=== PATIENT | male | born 1950 | race Caucasian/White ===

== ENCOUNTER 2018-08-16 06:05 | Inpatient (IN) | payer MEDICARE, OTHER ==
[~2018-08-16] VITALS: Ht 182.9 cm; Wt 177.3 kg
[2018-08-16 07:15] LABS: BASOPHILS # (AUTO) 0.1 X10'3 (0-0.2); EOSINOPHILS # (AUTO) 0.2 X10'3 (0-0.9); EOSINOPHILS % (AUTO) 2.7 % (0-6); HEMATOCRIT 47.8 % (42.0-52.0); HEMOGLOBIN 14.5 g/dl (14.0-17.9); LYMPHOCYTES # (AUTO) 0.5 X10'3 (1.1-4.8); LYMPHOCYTES % (AUTO) 6.5 % (21-51); MEAN CORPUSCULAR HEMOGLOBIN 25.1 PG (27.0-31.0); MEAN CORPUSCULAR HGB CONC 30.4 g/dL (33.0-36.5); MEAN CORPUSCULAR VOLUME 82.5 FL (78-98); MEAN PLATELET VOLUME 7.9 FL (7.4-10.4); MONOCYTES # (AUTO) 0.9 X10'3 (0-0.9); MONOCYTES % (AUTO) 10.3 % (2-12); NEUTROPHILS # (AUTO) 6.7 X10'3 (1.8-7.7); NEUTROPHILS % (AUTO) 79.5 % (42-75); PLATELET COUNT 243 X10'3 (140-440); RED BLOOD COUNT 5.79 X10'6 (4.70-6.10); RED CELL DISTRIBUTION WIDTH 20.2 % (11.5-14.5); WHITE BLOOD COUNT 8.4 X10'3 (4.5-11.0)
[2018-08-16 07:27] LABS: INR 1.3 INR; PARTIAL THROMBOPLASTIN TIME 29 SECONDS (22-32)
[2018-08-16 07:29] LABS: ALANINE AMINOTRANSFERASE 24 U/L (12-78); ALBUMIN/GLOBULIN RATIO 0.7 (1.1-1.5); ALKALINE PHOSPHATASE 86 IU/L (46-116); ANION GAP 6 (8-16); ASPARTATE AMINO TRANSFERASE 22 U/L (10-37); BILIRUBIN,TOTAL 2.7 MG/DL (0.1-1.0); BLOOD UREA NITROGEN 39 MG/DL (7-18); BUN/CREATININE RATIO 22.8 (5.4-32.0); CALCIUM 8.7 MG/DL (8.5-10.1); CHLORIDE 102 MMOL/L (99-107); CREATININE 1.71 MG/DL (0.60-1.10); GLUCOSE 108 MG/DL (70-104); POTASSIUM 4.2 MMOL/L (3.5-5.1); SODIUM 140 MMOL/L (135-145); TOTAL CARBON DIOXIDE 31.9 MMOL/L (24-32); TOTAL PROTEIN 7.5 G/DL (6.4-8.2); eGFR 40 ML/MIN
[2018-08-16] MEDS ORDERED: iohexol 350MG/ML 100ml bottle IV ONE (08:35)
[2018-08-16 10:52] LABS: PLATELET ESTIMATE NORMAL
[2018-08-16 10:53] LABS: ANISOCYTOSIS 3+; HYPOCHROMASIA 1+; MICROCYTOSIS 1+; POIKILOCYTOSIS 1+; POLYCHROMASIA 1+; SCHISTOCYTES FEW; STOMATOCYTES FEW; TARGET CELLS FEW
[2018-08-16] MEDS ORDERED: magnesium hydroxide 30ml (MOM) UD suspension PO PRN (11:15)
[2018-08-16] MEDS ORDERED: ondansetron/PF 4mg/2ml inj IV PRN (11:15)
[2018-08-16] MEDS ORDERED: acetaminophen 325mg tablet PO PRN (11:15)
[2018-08-16] MEDS ORDERED: mag hydrox/Alum hydrox/simeth 30ml oral suspension PO PRN (11:15)
[2018-08-16] MEDS ORDERED: FURO40TA4 PO (12:28)
[2018-08-16] MEDS ORDERED: LOSA100T57 PO (12:30)
[2018-08-16] MEDS ORDERED: AMLO10TA13 PO (12:30)
[2018-08-16] MEDS ORDERED: METF-437 PO (12:30)
[2018-08-16] MEDS ORDERED: METO25TA6 PO (12:30)
[2018-08-16] MEDS ORDERED: ASPI-974 PO (12:31)
--- NOTE | 2018-08-16 12:34 | NUR ---
Patient in room . I have received report from Sabine RN and had the opportunity to ask questions and assume patient care.
[2018-08-16 12:46] LABS: CREATINE KINASE 105 U/L (39-308)
[2018-08-16] MEDS ORDERED: MULT-933 PO (12:53)
[2018-08-16 13:00] VITALS: BP 127/75
--- NOTE | 2018-08-16 13:00 | NUR ---
patient arrived to pcu.
[2018-08-16 15:00] VITALS: BP 131/77
[2018-08-16] MEDS ORDERED: heparin 10,000 units/1 ML INJ IV ONE (16:15)
[2018-08-16] MEDS ORDERED: albuterol 2.5 MG/3 ML nebule NEB PRN (16:25)
[2018-08-16] MEDS: heparin 25,000 UNIT/250ml bag 250 ML IV SCH (16:54)
[2018-08-16 17:09] LABS: INR 1.3 INR; PARTIAL THROMBOPLASTIN TIME 29 SECONDS (22-32)
[2018-08-16 17:57] LABS: HEMATOCRIT 47.8 % (42.0-52.0); HEMOGLOBIN 15.4 g/dl (14.0-17.9); MEAN CORPUSCULAR HEMOGLOBIN 27.2 PG (27.0-31.0); MEAN CORPUSCULAR HGB CONC 32.3 g/dL (33.0-36.5); MEAN CORPUSCULAR VOLUME 84.2 FL (78-98); MEAN PLATELET VOLUME 8.2 FL (7.4-10.4); PLATELET COUNT 237 X10'3 (140-440); RED BLOOD COUNT 5.67 X10'6 (4.70-6.10); RED CELL DISTRIBUTION WIDTH 20.2 % (11.5-14.5); WHITE BLOOD COUNT 8.7 X10'3 (4.5-11.0)
[2018-08-16 18:00] VITALS: BP 126/75
--- NOTE | 2018-08-16 18:25 | NUR ---
Problems reprioritized. Patient report given, questions answered & plan of care reviewed with Lizy LOBATO.
[2018-08-16 19:20] LABS: PLATELET ESTIMATE NORMAL; TOTAL CELLS COUNTED 100
[2018-08-16 19:21] LABS: ANISOCYTOSIS 3+
[2018-08-16 19:22] LABS: HYPOCHROMASIA 1+; POLYCHROMASIA 1+; SPHEROCYTES FEW
[2018-08-16 19:23] LABS: POIKILOCYTOSIS FEW; STOMATOCYTES 1+; TARGET CELLS FEW
[2018-08-16] MEDS: furosemide 40mg/4ml inj IV SCH (20:08)
[2018-08-16] MEDS: guaiFENesin ER 600mg tablet PO SCH (20:09)
[2018-08-16] MEDS: metoprolol tartrate 12.5mg (1/2 tablet) PO SCH (20:09)
[2018-08-16 22:00] VITALS: BP 109/77
[2018-08-17] MEDS: heparin 10,000 units/1 ML INJ IV PRN ×2 (00:01→06:56)
[2018-08-17] MEDS: heparin 25,000 UNIT/250ml bag 250 ML IV SCH ×2 (00:05→06:48)
[2018-08-17 02:00] VITALS: BP 109/71
[2018-08-17 05:59] LABS: BASOPHILS # (AUTO) 0.1 X10'3 (0-0.2); EOSINOPHILS # (AUTO) 0.3 X10'3 (0-0.9); EOSINOPHILS % (AUTO) 3.2 % (0-6); HEMATOCRIT 44.8 % (42.0-52.0); HEMOGLOBIN 13.7 g/dl (14.0-17.9); LYMPHOCYTES # (AUTO) 0.6 X10'3 (1.1-4.8); LYMPHOCYTES % (AUTO) 5.9 % (21-51); MEAN CORPUSCULAR HEMOGLOBIN 25.3 PG (27.0-31.0); MEAN CORPUSCULAR HGB CONC 30.6 g/dL (33.0-36.5); MEAN CORPUSCULAR VOLUME 82.7 FL (78-98); MEAN PLATELET VOLUME 8.1 FL (7.4-10.4); MONOCYTES # (AUTO) 0.9 X10'3 (0-0.9); MONOCYTES % (AUTO) 9.1 % (2-12); NEUTROPHILS # (AUTO) 7.6 X10'3 (1.8-7.7); NEUTROPHILS % (AUTO) 80.8 % (42-75); PLATELET COUNT 225 X10'3 (140-440); RED BLOOD COUNT 5.41 X10'6 (4.70-6.10); WHITE BLOOD COUNT 9.4 X10'3 (4.5-11.0)
--- NOTE | 2018-08-17 06:20 | NUR ---
Patient in room PCU 3012. I have received report from Lizy LOBATO and had the opportunity to ask questions and assume patient care.
[2018-08-17 06:25] LABS: ALBUMIN 2.7 G/DL (3.4-5.0); ANION GAP 6 (8-16); BLOOD UREA NITROGEN 32 MG/DL (7-18); BUN/CREATININE RATIO 22.9 (5.4-32.0); CALCIUM 8.3 MG/DL (8.5-10.1); CHLORIDE 102 MMOL/L (99-107); GLUCOSE 111 MG/DL (70-104); POTASSIUM 4.4 MMOL/L (3.5-5.1); SODIUM 140 MMOL/L (135-145); TOTAL CARBON DIOXIDE 31.6 MMOL/L (24-32); eGFR 50 ML/MIN
--- NOTE | 2018-08-17 06:29 | NUR ---
Problems reprioritized. Patient report given, questions answered & plan of care reviewed with LUIS ALFREDO Sánchez.
[2018-08-17 07:00] VITALS: BP 124/74
[2018-08-17] MEDS: furosemide 40mg/4ml inj IV SCH ×3 (07:04→19:46)
[2018-08-17] MEDS: atorvastatin 20mg tablet PO SCH (07:05)
[2018-08-17] MEDS: metoprolol tartrate 12.5mg (1/2 tablet) PO SCH ×2 (07:05→19:46)
[2018-08-17] MEDS: aspirin 81mg tablet.DR PO SCH (07:05)
[2018-08-17] MEDS: guaiFENesin ER 600mg tablet PO SCH ×2 (07:05→19:44)
[2018-08-17 09:38] LABS: ANISOCYTOSIS 2+; PLATELET ESTIMATE NORMAL
[2018-08-17] MEDS ORDERED: MESSAGE TO NURSING PO NR (10:00)
[2018-08-17 11:00] VITALS: BP 134/74
[2018-08-17 14:15] LABS: CHOL/HDL RATIO 2.9 (0.00-4.99); CHOLESTEROL 93 MG/DL (0-200); HDL CHOLESTEROL 32 MG/DL (35-60); LDL CHOLESTEROL 63 MG/DL (50-100); TRIGLYCERIDES 66 MG/DL (20-135)
[2018-08-17 15:00] VITALS: BP 120/64
[2018-08-17 18:00] VITALS: BP 145/91
--- NOTE | 2018-08-17 18:05 | NUR ---
Problems reprioritized. Patient report given, questions answered & plan of care reviewed with Lizy LOBATO.
[2018-08-17] MEDS: apixaban 5mg tablet PO SCH (19:44)
[2018-08-17 22:00] VITALS: BP 118/76
[2018-08-18] VITALS (7 sets, daily range): BP systolic 119–162; BP diastolic 66–95
[2018-08-18 06:00] LABS: BASOPHILS % (AUTO) 0.5 % (0-1); EOSINOPHILS # (AUTO) 0.2 X10'3 (0-0.9); EOSINOPHILS % (AUTO) 2.6 % (0-6); HEMATOCRIT 46.7 % (42.0-52.0); HEMOGLOBIN 14.1 g/dl (14.0-17.9); LYMPHOCYTES # (AUTO) 0.5 X10'3 (1.1-4.8); LYMPHOCYTES % (AUTO) 6.1 % (21-51); MEAN CORPUSCULAR HEMOGLOBIN 24.9 PG (27.0-31.0); MEAN CORPUSCULAR HGB CONC 30.2 g/dL (33.0-36.5); MEAN CORPUSCULAR VOLUME 82.7 FL (78-98); MEAN PLATELET VOLUME 7.8 FL (7.4-10.4); MONOCYTES # (AUTO) 0.7 X10'3 (0-0.9); MONOCYTES % (AUTO) 8.6 % (2-12); NEUTROPHILS # (AUTO) 6.7 X10'3 (1.8-7.7); NEUTROPHILS % (AUTO) 82.2 % (42-75); PLATELET COUNT 232 X10'3 (140-440); RED BLOOD COUNT 5.65 X10'6 (4.70-6.10); RED CELL DISTRIBUTION WIDTH 20.4 % (11.5-14.5); WHITE BLOOD COUNT 8.1 X10'3 (4.5-11.0)
--- NOTE | 2018-08-18 06:10 | NUR ---
Patient in room PCU 3012. I have received report from Lizy LOBATO and had the opportunity to ask questions and assume patient care.
--- NOTE | 2018-08-18 06:13 | NUR ---
Problems reprioritized. Patient report given, questions answered & plan of care reviewed with LUIS ALFREDO Davis.
[2018-08-18 06:15] LABS: ALBUMIN 2.8 G/DL (3.4-5.0); ANION GAP 2 (8-16); BLOOD UREA NITROGEN 25 MG/DL (7-18); BUN/CREATININE RATIO 22.7 (5.4-32.0); CALCIUM 7.8 MG/DL (8.5-10.1); CHLORIDE 101 MMOL/L (99-107); GLUCOSE 109 MG/DL (70-104); POTASSIUM 4.3 MMOL/L (3.5-5.1); SODIUM 139 MMOL/L (135-145); TOTAL CARBON DIOXIDE 35.7 MMOL/L (24-32); eGFR 67 ML/MIN
[2018-08-18 06:44] LABS: ANISOCYTOSIS 3+; PLATELET ESTIMATE NORMAL
[2018-08-18 06:45] LABS: HYPOCHROMASIA 1+; SCHISTOCYTES FEW; SPHEROCYTES FEW
[2018-08-18 06:48] LABS: POLYCHROMASIA FEW
[2018-08-18 06:49] LABS: STOMATOCYTES FEW
[2018-08-18] MEDS: metoprolol tartrate 12.5mg (1/2 tablet) PO SCH ×2 (07:21→19:09)
[2018-08-18] MEDS: guaiFENesin ER 600mg tablet PO SCH ×2 (07:21→19:09)
[2018-08-18] MEDS: furosemide 40mg/4ml inj IV SCH ×3 (07:22→21:17)
[2018-08-18] MEDS: atorvastatin 20mg tablet PO SCH (07:22)
[2018-08-18] MEDS: aspirin 81mg tablet.DR PO SCH (07:22)
[2018-08-18] MEDS: apixaban 5mg tablet PO SCH ×2 (07:22→19:08)
--- NOTE | 2018-08-18 18:44 | NUR ---
Problems reprioritized. Patient report given, questions answered & plan of care reviewed with Agustina LOBATO.
--- NOTE | 2018-08-18 18:45 | NUR ---
Patient in room PCU 3012. I have received report from LUIS ALFREDO Davis and had the opportunity to ask questions and assume patient care.
[2018-08-19 02:00] VITALS: BP 156/83
--- NOTE | 2018-08-19 03:30 | NUR ---
Patient got a little disoriented and got out of bed by himself without using his call light thinking he needed to use the bathroom. Upon getting out of bed, he pulled his douglas which led to a little blood in his urine. Patient states he does not know why he got disoriented and what lead him to getting out of bed. He was reoriented and bed alarm was turned on.
[2018-08-19 06:09] LABS: BASOPHILS # (AUTO) 0.1 X10'3 (0-0.2); BASOPHILS % (AUTO) 0.9 % (0-1); EOSINOPHILS # (AUTO) 0.2 X10'3 (0-0.9); EOSINOPHILS % (AUTO) 2.1 % (0-6); HEMATOCRIT 46.1 % (42.0-52.0); HEMOGLOBIN 13.9 g/dl (14.0-17.9); LYMPHOCYTES # (AUTO) 0.5 X10'3 (1.1-4.8); MEAN CORPUSCULAR HEMOGLOBIN 25.1 PG (27.0-31.0); MEAN CORPUSCULAR HGB CONC 30.2 g/dL (33.0-36.5); MEAN CORPUSCULAR VOLUME 83.1 FL (78-98); MEAN PLATELET VOLUME 7.6 FL (7.4-10.4); MONOCYTES # (AUTO) 0.9 X10'3 (0-0.9); MONOCYTES % (AUTO) 9.8 % (2-12); NEUTROPHILS # (AUTO) 7.3 X10'3 (1.8-7.7); NEUTROPHILS % (AUTO) 81.2 % (42-75); PLATELET COUNT 229 X10'3 (140-440); RED BLOOD COUNT 5.54 X10'6 (4.70-6.10); RED CELL DISTRIBUTION WIDTH 20.6 % (11.5-14.5)
[2018-08-19 06:20] LABS: ANION GAP 4 (8-16); BLOOD UREA NITROGEN 20 MG/DL (7-18); BUN/CREATININE RATIO 19.4 (5.4-32.0); CALCIUM 8.5 MG/DL (8.5-10.1); CHLORIDE 99 MMOL/L (99-107); CREATININE 1.03 MG/DL (0.60-1.10); GLUCOSE 115 MG/DL (70-104); SODIUM 140 MMOL/L (135-145); TOTAL CARBON DIOXIDE 36.7 MMOL/L (24-32); eGFR 72 ML/MIN
--- NOTE | 2018-08-19 06:25 | NUR ---
Problems reprioritized. Patient report given, questions answered & plan of care reviewed with LUIS ALFREDO Davis.
--- NOTE | 2018-08-19 06:29 | NUR ---
Patient in room PCU 3012. I have received report from Agustina LOBATO and had the opportunity to ask questions and assume patient care. Pt is alert and oriented X 3, bed alarm is on, and pt is resting in no apparent distress, will continue to monitor.
[2018-08-19 07:00] VITALS: BP 124/78
[2018-08-19 07:23] LABS: ANISOCYTOSIS 3+; PLATELET ESTIMATE NORMAL; SPHEROCYTES FEW
[2018-08-19] MEDS: guaiFENesin ER 600mg tablet PO SCH ×2 (08:06→19:32)
[2018-08-19] MEDS: atorvastatin 20mg tablet PO SCH (08:06)
[2018-08-19] MEDS: apixaban 5mg tablet PO SCH ×2 (08:06→19:31)
[2018-08-19] MEDS: aspirin 81mg tablet.DR PO SCH (08:06)
[2018-08-19] MEDS: furosemide 40mg/4ml inj IV SCH ×3 (08:07→21:37)
[2018-08-19] MEDS: metoprolol tartrate 12.5mg (1/2 tablet) PO SCH ×2 (08:07→19:32)
[2018-08-19 11:00] VITALS: BP 126/80
--- NOTE | 2018-08-19 13:19 | NUR ---
PAGER ID: [phone] MESSAGE: [id number] Darius MALAVE pt had a nose bleed and is on 5 mg of Eliquis. Thank you, Susan # [phone]
--- NOTE | 2018-08-19 13:55 | NUR ---
PAGER ID: [phone] MESSAGE: [id number] Darius Neal Pt has sever scrotal edema and urine output is 3800 a shift, is it ok to leave Max in pt? Thank you, Susan #[phone]
[2018-08-19 15:00] VITALS: BP 139/67
[2018-08-19 18:18] VITALS: BP 129/72
--- NOTE | 2018-08-19 18:41 | NUR ---
Problems reprioritized. Patient report given, questions answered & plan of care reviewed with Agustina LOBATO.
--- NOTE | 2018-08-19 19:03 | NUR ---
Patient in room PCU 3011. I have received report from LUIS ALFREDO Davis and had the opportunity to ask questions and assume patient care.
[2018-08-19 21:36] VITALS: BP 124/89
[2018-08-20 02:00] VITALS: BP 133/66
[2018-08-20 06:00] VITALS: BP 150/80
[2018-08-20 06:18] LABS: BASOPHILS # (AUTO) 0.1 X10'3 (0-0.2); EOSINOPHILS # (AUTO) 0.3 X10'3 (0-0.9); EOSINOPHILS % (AUTO) 3.2 % (0-6); HEMATOCRIT 46.6 % (42.0-52.0); HEMOGLOBIN 13.9 g/dl (14.0-17.9); LYMPHOCYTES # (AUTO) 0.5 X10'3 (1.1-4.8); LYMPHOCYTES % (AUTO) 5.5 % (21-51); MEAN CORPUSCULAR HEMOGLOBIN 24.9 PG (27.0-31.0); MEAN CORPUSCULAR HGB CONC 29.9 g/dL (33.0-36.5); MEAN CORPUSCULAR VOLUME 83.1 FL (78-98); MEAN PLATELET VOLUME 8.1 FL (7.4-10.4); MONOCYTES # (AUTO) 0.8 X10'3 (0-0.9); MONOCYTES % (AUTO) 9.7 % (2-12); NEUTROPHILS # (AUTO) 6.6 X10'3 (1.8-7.7); NEUTROPHILS % (AUTO) 80.6 % (42-75); PLATELET COUNT 219 X10'3 (140-440); RED CELL DISTRIBUTION WIDTH 20.7 % (11.5-14.5); WHITE BLOOD COUNT 8.2 X10'3 (4.5-11.0)
--- NOTE | 2018-08-20 06:32 | NUR ---
Problems reprioritized. Patient report given, questions answered & plan of care reviewed with LUIS ALFREDO [place].
[2018-08-20 06:44] LABS: ALBUMIN 2.8 G/DL (3.4-5.0); ANION GAP 3 (8-16); BLOOD UREA NITROGEN 21 MG/DL (7-18); BUN/CREATININE RATIO 23.9 (5.4-32.0); CALCIUM 8.5 MG/DL (8.5-10.1); CHLORIDE 98 MMOL/L (99-107); CREATININE 0.88 MG/DL (0.60-1.10); GLUCOSE 102 MG/DL (70-104); SODIUM 140 MMOL/L (135-145); TOTAL CARBON DIOXIDE 39.2 MMOL/L (24-32); eGFR 86 ML/MIN
--- NOTE | 2018-08-20 06:47 | NUR ---
Patient in room PCU 3012. I have received report from virgie garcia and had the opportunity to ask questions and assume patient care.
[2018-08-20] MEDS: metoprolol tartrate 12.5mg (1/2 tablet) PO SCH ×2 (08:09→20:54)
[2018-08-20] MEDS: aspirin 81mg tablet.DR PO SCH (08:09)
[2018-08-20] MEDS: atorvastatin 20mg tablet PO SCH (08:09)
[2018-08-20] MEDS: guaiFENesin ER 600mg tablet PO SCH ×2 (08:10→20:36)
[2018-08-20] MEDS: furosemide 40mg/4ml inj IV SCH ×3 (08:10→20:36)
[2018-08-20 11:00] VITALS: BP 133/74
[2018-08-20 11:39] VITALS: BP 133/74
--- NOTE | 2018-08-20 14:43 | NUR ---
PER DR MARCELINA CELIS TO DC FC THAT WAS PLACED AT [facility]. PT TOLERATED WELL
[2018-08-20 18:00] VITALS: BP 159/86
--- NOTE | 2018-08-20 18:19 | NUR ---
Problems reprioritized. Patient report given, questions answered & plan of care reviewed with UMER LOBATO.
--- NOTE | 2018-08-20 18:45 | NUR ---
Patient in room PCU 3012. I have received report from Yi LOBATO and had the opportunity to ask questions and assume patient care.
[2018-08-20 22:00] VITALS: BP 137/63
[2018-08-21 02:00] VITALS: BP 141/52
--- NOTE | 2018-08-21 05:25 | NUR ---
2019 PATIENT FOUND DOWN ON FLOOR BY AIDE. USED CLAUDIA TO LIFT PATIENT AND GET HIM BACK INTO BED. INCIDENT REPORTS FILED. PATIENT STATES "I WON'T GET UP BY MYSELF AGAIN, THAT WAS SO EMBARRASING. BLEEDING NOTED TO TOES ON R FOOT. LARGE TEAR ON TOP OF GREAT TOE AND CAN SEE WHERE TOE NAIL WAS PEELED BACK. MODERATE AMT OF BLEEDING TO THE GREAT TOE, CLEANED FOOT, PUT PRESSURE TO BLEEDING WOUND UNTIL IT STOPPED. PATIENT CLEANED OF URINE AND STOOL, INTRADRY TO PANUS AND UPPER THIGH FOLDS AFTER CLEANING FOLDS WITH SOAP AND WATER. REDDENED AND SLIGHT EXCORIATION NOTED. PATIENT STATED COMFORT, CALL LIGHT IN REACH AND STATED HE WOULD USE THE CALL LIGHT FOR ANY NEEDS.
--- NOTE | 2018-08-21 06:10 | NUR ---
Patient in room PCU 3012. I have received report from Lori LOBATO and had the opportunity to ask questions and assume patient care.
[2018-08-21 06:22] LABS: BASOPHILS % (AUTO) 0.6 % (0-1); EOSINOPHILS # (AUTO) 0.3 X10'3 (0-0.9); EOSINOPHILS % (AUTO) 3.4 % (0-6); HEMATOCRIT 45.7 % (42.0-52.0); HEMOGLOBIN 14.1 g/dl (14.0-17.9); LYMPHOCYTES # (AUTO) 0.4 X10'3 (1.1-4.8); MEAN CORPUSCULAR HEMOGLOBIN 25.4 PG (27.0-31.0); MEAN CORPUSCULAR HGB CONC 30.9 g/dL (33.0-36.5); MEAN CORPUSCULAR VOLUME 82.4 FL (78-98); MEAN PLATELET VOLUME 8.5 FL (7.4-10.4); MONOCYTES # (AUTO) 0.7 X10'3 (0-0.9); MONOCYTES % (AUTO) 8.8 % (2-12); NEUTROPHILS # (AUTO) 6.8 X10'3 (1.8-7.7); NEUTROPHILS % (AUTO) 82.2 % (42-75); PLATELET COUNT 219 X10'3 (140-440); RED BLOOD COUNT 5.55 X10'6 (4.70-6.10); WHITE BLOOD COUNT 8.3 X10'3 (4.5-11.0)
--- NOTE | 2018-08-21 06:31 | NUR ---
Problems reprioritized. Patient report given, questions answered & plan of care reviewed with LUPE LOBATO.
[2018-08-21 06:37] LABS: ANION GAP 1 (8-16); BLOOD UREA NITROGEN 21 MG/DL (7-18); BUN/CREATININE RATIO 25.6 (5.4-32.0); CALCIUM 8.6 MG/DL (8.5-10.1); CHLORIDE 98 MMOL/L (99-107); CREATININE 0.82 MG/DL (0.60-1.10); GLUCOSE 111 MG/DL (70-104); POTASSIUM 3.7 MMOL/L (3.5-5.1); SODIUM 139 MMOL/L (135-145); eGFR > 90 ML/MIN
[2018-08-21 06:40] LABS: TOTAL CARBON DIOXIDE 40.1 MMOL/L (24-32)
[2018-08-21 07:03] VITALS: BP 153/91
[2018-08-21] MEDS: furosemide 40mg/4ml inj IV SCH ×3 (07:24→19:56)
[2018-08-21] MEDS: guaiFENesin ER 600mg tablet PO SCH ×2 (07:24→19:58)
[2018-08-21] MEDS: metoprolol tartrate 12.5mg (1/2 tablet) PO SCH ×2 (07:24→19:57)
[2018-08-21] MEDS: atorvastatin 20mg tablet PO SCH (07:24)
[2018-08-21] MEDS: aspirin 81mg tablet.DR PO SCH (07:24)
[2018-08-21 07:32] LABS: PLATELET ESTIMATE NORMAL
[2018-08-21 07:33] LABS: ANISOCYTOSIS 3+; POLYCHROMASIA FEW; ROULEAUX 1+; STOMATOCYTES 1+
--- NOTE | 2018-08-21 10:33 | NUR ---
Dr. Tirado informed of pt refusing lasix this AM and stating he wants to leave. Also informed MD of critical CO2 40.1. MD ordered ABG and stated to wean O2 for sats above 90. also stated to resume eliquis at 1200 if not bleeding occurs. Will continue to monitor.
[2018-08-21 11:01] LABS: ABG BASE EXCESS 14.7 mmol/L (-2.0-3.0); ABG HCO3 43.7 mmol/L (22.0-26.0); ABG OXYGEN SATURATION 91.5 % (95-98); ABG PCO2 (T) 74.1 mmHg (35.0-48.0); ABG PH (T) 7.389 (7.350-7.450); ALLEN'S TEST Positive; FCOHb 2.7 % (0.5-1.5); FLOW 4 L/min; FMetHb 0.3 % (0.3-1.12); FO2Hb 88.8 % (94-100)
--- NOTE | 2018-08-21 11:06 | NUR ---
paged regarding ABG results. Awaiting callback.
--- NOTE | 2018-08-21 11:10 | NUR ---
aware of ABG results. No new orders at this time.
[2018-08-21] MEDS ORDERED: apixaban 5mg tablet PO ONE (11:55)
[2018-08-21 12:06] VITALS: BP 165/95
[2018-08-21 16:13] VITALS: BP 158/99
[2018-08-21 18:00] VITALS: BP 146/80
--- NOTE | 2018-08-21 18:36 | NUR ---
Problems reprioritized. Patient report given, questions answered & plan of care reviewed with Chanelle LOBATO.
[2018-08-21 22:00] VITALS: BP 122/74
--- NOTE | 2018-08-22 06:30 | NUR ---
Patient in room [facility] 3012. I have received report from Marcia and had the opportunity to ask questions and assume patient care. Addendum: 08/22/18 at 1028 by Roz Astudillo RN Amended: Links added.
--- NOTE | 2018-08-22 06:37 | NUR ---
REPORT GIVEN TO LUIS ALFREDO BRADY.
[2018-08-22 07:00] VITALS: BP 169/96
[2018-08-22] MEDS: furosemide 40mg/4ml inj IV SCH (08:00)
[2018-08-22 08:05] VITALS: BP_SYST 169
[2018-08-22] MEDS: guaiFENesin ER 600mg tablet PO SCH (08:05)
[2018-08-22] MEDS: metoprolol tartrate 12.5mg (1/2 tablet) PO SCH (08:05)
[2018-08-22] MEDS: atorvastatin 20mg tablet PO SCH (08:05)
[2018-08-22] MEDS: aspirin 81mg tablet.DR PO SCH (08:05)
[2018-08-22] MEDS ORDERED: METO25TA6 PO (09:33)
[2018-08-22] MEDS ORDERED: ASPI-1071 PO (09:33)
[2018-08-22] MEDS ORDERED: APIX5TAB3 PO (09:39)
== END 2018-08-22 12:00 | disposition home or self-care (01) | DRG 280 ==
LOC: ER 06:07 → PCU 3S 13:23 → CMPBEDREQ 19:49
PROVIDERS: ADMIT Family Medicine; ATTEND Hospitalist
PROC: BW251ZZ Computerized Tomography (CT Scan) of Chest, Abdomen and Pelvis using Low Osmolar Contrast (ICD-10-PCS; principal; 2018-08-16)
DX: I13.0 Hypertensive heart and chronic kidney disease with heart failure and stage 1 through stage 4 chronic kidney disease, or unspecified chronic kidney disease (principal); I21.A1 Myocardial infarction type 2; J96.20 Acute and chronic respiratory failure, unspecified whether with hypoxia or hypercapnia; I50.43 Acute on chronic combined systolic (congestive) and diastolic (congestive) heart failure; D68.32 Hemorrhagic disorder due to extrinsic circulating anticoagulants; N17.9 Acute kidney failure, unspecified; Z68.43 Body mass index [BMI] 50.0-59.9, adult; D75.1 Secondary polycythemia; E11.9 Type 2 diabetes mellitus without complications; E66.01 Morbid (severe) obesity due to excess calories; G47.33 Obstructive sleep apnea (adult) (pediatric); I48.2 Chronic atrial fibrillation; K80.20 Calculus of gallbladder without cholecystitis without obstruction; S20.01XA Contusion of right breast, initial encounter; S20.02XA Contusion of left breast, initial encounter; W01.0XXA Fall on same level from slipping, tripping and stumbling without subsequent striking against object, initial encounter; R31.9 Hematuria, unspecified; N18.9 Chronic kidney disease, unspecified; Z99.81 Dependence on supplemental oxygen; Z79.01 Long term (current) use of anticoagulants; Z79.899 Other long term (current) drug therapy; Y92.009 Unspecified place in unspecified non-institutional (private) residence as the place of occurrence of the external cause
CPT/HCPCS: 36415; 36600; 71045; 71275; 74177; 80048; 80053; 80061; 82550; 82803; 83036; 83880; 84484; 85018; 85025; 85610; 85730; 87070; 93005; 93306; 94760; 97116; 97162; 97530; 99285; G0378; J1644; J1940; Q9967